=== PATIENT | male | born 1955 | race Caucasian/White ===

== ENCOUNTER 2021-06-03 11:11 | Emergency (ER) | payer MEDICARE ==
[~2021-06-03 11:11] MED LIST: ACETAMINOPHEN-1 EAC1 PO; AZITHROMYCIN250 MG PO; CETIRIZINE HCL10 MG PO; CRESTOR20 MG PO; DECADRON6 MG PO; DEXAMETHASONE6 MG PO; ESOMEPRAZOLE MA40 MG PO; KEFLEX CAP 500500 MG PO; KEFLEX500 MG PO; LISINOPRIL20 MG PO; MEDROL DOSEPAK 24 MG PO; MELOXICAM15 MG PO; MONTELUKAST SOD10 MG PO; PLAQUENIL 200200 MG PO; ROPINIROLE HCL0.5 MG PO; VENTOLIN HFA 66.7 GM INH
== END 2021-06-03 11:28 | disposition left against medical advice (07) ==
LOC: ER1 11:11
DX: Z53.21 Procedure and treatment not carried out due to patient leaving prior to being seen by health care provider (principal)

== ENCOUNTER → 2022-04-12 | Outpatient (CLI) | payer MEDICARE | LOC: EXRD 10:03 | DX: M54.50 Low back pain, unspecified (principal); M47.816 Spondylosis without myelopathy or radiculopathy, lumbar region | CPT/HCPCS: 72100 ==